=== PATIENT | male | born 1995 | race Caucasian/White ===

== ENCOUNTER 2023-05-01 20:19 | Emergency (ER) | payer OTHER, SELFPAY ==
[2023-05-01 20:27] VITALS: BP 162/102; PULSE 100; RESP 18; TEMP 37.5; O2SAT 98; BMI 37.3
[2023-05-01] MEDS: AMOXICILLIN/POTASSIUM CLAV 1 TAB TABLET PO (21:15)
[2023-05-01] MEDS: KETOROLAC TROMETHAMINE 30 MG/ML VIAL IM (21:15)
[2023-05-01] MEDS: ADACEL DIPH,PERTUSS(ACELL),TET VAC/PF 0.5 ML ADULT SYRINGE IM (21:16)
--- NOTE | 2023-05-01 21:16 | ED.LOWEXI1 ---
HPI - Extremity Injury (Lower) General Chief Complaint: Extremity Injury, Lower Stated Complaint: RIPPED TOENAIL Time Seen by Provider: 05/01/23 20:33 Source: patient Mode of arrival: walk-in History of Present Illness HPI Narrative: Patient is coming to the ER after he had an injury to his right big toe he mentioned that he was moving the grill and the toenail got caught in that and got pulled upwards No other injuries Related Data Previous Rx's Medication Instructions Recorded amoxicillin 875 mg-potassium 1 tab PO BID #14 tabs 05/01/23 clavulanate 125 mg tablet bacitracin 500 unit/gram topical 1 applic topical DAILY #28 grams 05/01/23 ointment diclofenac sodium 75 mg 75 mg PO BID PRN pain #14 tabs 05/01/23 tablet,delayed release Allergies Allergy/AdvReac Type Severity Reaction Status Date / Time No Known Drug Allergies Allergy Verified 05/01/23 20:26 Review of Systems ROS Status of ROS 10 or more systems reviewed and unremarkable except as noted in history and below PFSH PFS Social History Smoking status: Never smoker Exam Narrative Exam Narrative: Nurses notes and vital signs reviewed and patient is not hypoxic. General: Well-appearing and in no apparent distress. Skin: Warm, dry, no pallor noted. No rash. Head: Normocephalic, atraumatic. Neck: Supple, non-tender. Eye: Pupils are equal, round and EOMI. No scleral icterus. Ears, Nose, Mouth, and Throat: TM are clear, no nasal mucosal hypertrophy. Oral mucosa is moist, no posterior oropharynx erythema, uvula is mid-line Cardiovascular: Regular Rate and Rhythm without murmur, gallop or rub. Respiratory: No accessory muscle use or respiratory distress. Lungs are clear to auscultation, no wheezing, rales or rhonchi Chest Wall: no tenderness Back: No midline thoracic or lumbar vertebral tenderness. No CVA tenderness Musculoskeletal: normal ROM, no calf or popliteal tenderness, no lower extremity edema/swelling, the patient have the toenail on the right big toe is elevated at the toenail bed is intact no obvious laceration below the toenail and there is control bleeding GI: Abdomen is soft, non-distended. Normal bowel sounds. No masses appreciated. No tenderness to palpation. No rebound, guarding, or rigidity noted. Neurological: A&O x4. No cranial nerve dysfunction observed. No truncal ataxia. Moves all extremities. Sensation intact. Psychiatric: Cooperative and interactive. Normal mood and affect. Constitutional Vital Signs, click to edit/add: Last Vital Signs Temp 99.5 F 05/01/23 20:27 Pulse 100 H 05/01/23 20:27 Resp 18 05/01/23 20:27 BP 162/102 H 05/01/23 20:27 Pulse Ox 98 05/01/23 20:27 O2 Del Method Room Air 05/01/23 20:27 Course Vital Signs Vital signs: Vital Signs Temperature 99.5 F 05/01/23 20:27 Pulse Rate 100 H 05/01/23 20:27 Respiratory Rate 18 05/01/23 20:27 Blood Pressure 162/102 H 05/01/23 20:27 Pulse Oximetry 98 05/01/23 20:27 Oxygen Delivery Method Room Air 05/01/23 20:27 Temperature 99.5 F 05/01/23 20:27 Pulse Rate 100 H 05/01/23 20:27 Respiratory Rate 18 05/01/23 20:27 Blood Pressure 162/102 H 05/01/23 20:27 Pulse Oximetry 98 05/01/23 20:27 Oxygen Delivery Method Room Air 05/01/23 20:27 MDM - Extremity Injury (Lower) MDM Narrative Medical decision making narrative: After cleaning the wound the patient had a bacitracin applied in addition to the clean dressing and postop shoes the patient also had tetanus booster in the ER The patient also provided with a Augmentin discharged to follow-up with his primary care doctor with also referred to podiatry if he could not get into his primary care Elevation and rest and follow-up with his primary care doctor The patient is to follow up with primary care physician in next 2-3 days or to return to the emergency department should any of the signs or symptoms worsen or new symptoms develop. The patient agrees with the following Diagnosis and Treatment plan and the patient will be discharged home. Discharge Plan Discharge Chief Complaint: Extremity Injury, Lower Clinical Impression: Nail avulsion of toe Patient Disposition: Home, Self-Care Time of Disposition Decision: 21:16 Condition: Good Prescriptions / Home Meds: New amoxicillin-pot clavulanate 875-125 mg tablet 1 tab PO BID Qty: 14 0RF diclofenac sodium 75 mg tablet,delayed release (DR/EC) 75 mg PO BID PRN (Reason: pain) Qty: 14 0RF bacitracin 500 unit/gram ointment 1 applic topical DAILY Qty: 28 0RF Instructions: Nail Avulsion (ED), Acute Wounds (ED) Stand Alone Forms: Portal Instructions Referrals: Juan Diego Romero MD [Primary Care Provider] - 1 week Jerson Sewell MD [Physician] - 1 week
[2023-05-01] MEDS: BACITRACIN OINTMENT 28.4 GM TUBE 1 APPLIC TOPICAL (21:17)
== END 2023-05-01 21:46 | disposition home or self-care (01) ==
PROVIDERS: Emergency Provider Emergency Medicine; PCP Family Medicine
DX: S91.201A Unspecified open wound of right great toe with damage to nail, initial encounter (principal); W22.8XXA Striking against or struck by other objects, initial encounter; Z23 Encounter for immunization
CPT/HCPCS: 90471; 90715; 99283